=== PATIENT | female | born 1955 | race Caucasian/White ===

== ENCOUNTER 2017-01-25 10:19 | Day surgery (SDC) | payer OTHER ==
[~2017-01-25] VITALS: Ht 157.5 cm; Wt 61.1 kg
[2017-01-25 10:57] VITALS: Ht 157.5 cm; Wt 61.1 kg
[2017-01-25] MEDS ORDERED: LEVO50TA74 PO (11:08)
[2017-01-25 11:11] VITALS: BP 136/64; PULSE 65; RESP 17
[2017-01-25] MEDS ORDERED: MIDAZOLAM 1 MG/ML 2 ML INJ ONE (12:03)
[2017-01-25] MEDS ORDERED: FENTAnyl 50 MCG/ML VIAL ONE (12:03)
--- NOTE | 2017-01-25 12:32 | GILP ---
DATE OF PROCEDURE: 01/25/2017 NAME OF PROCEDURE: Colonoscopy. SURGEON: Cherelle Nur MD PREOPERATIVE DIAGNOSIS: Screening colonoscopy. POSTOPERATIVE DIAGNOSES: 1. Colonoscopy all the way to the cecum. 2. Internal hemorrhoids. 3. No colon neoplasm was identified. INDICATION FOR THE PROCEDURE: Ms. Srini Chong is a 62-year-old female patient who was schedul ed for screening colonoscopy. The procedure and possible complications were well explained to the patient. The patient understood and consented to the procedure. DESCRIPTION OF PROCEDURE: Under the influence of fentanyl and Versed, the colonoscope was carefully introduced in the rectum and under direct vision, it was advanced all the way to the cecum. FINDINGS: The patient had internal hemorrhoids. No colon neoplasm was identified. She tolerated the procedure very well and there was no complication from the procedure. At the end of the procedure, she was awake with stable vital signs and she was discharged home to the care of h er family. IMPRESSION: 1. Colonoscopy all the way to the cecum. 2. Internal hemorrhoids. 3. No colon neoplasm was identified. PLAN: Next screening colonoscopy in 10 years. Dictated By: CHERELLE ROMERO/ARLEY Conf#: [id number] DID#: [id number] CC: CHERELLE NUR MD;*EndCC*
[2017-01-25 12:43] VITALS: BMI 21.0
== END 2017-01-25 15:59 | disposition home or self-care (01) ==
LOC: GIL 10:19
PROVIDERS: ATTEND Internal Medicine Gastroenterology
DX: Z12.11 Encounter for screening for malignant neoplasm of colon (principal); K64.8 Other hemorrhoids
CPT/HCPCS: 45378; J2250; J3010; Z7610

== ENCOUNTER 2018-03-11 12:30 | Emergency (ER) | END 2018-03-11 17:22 | disposition home or self-care (01) ==